=== PATIENT | female | born 1990 | race Caucasian/White ===

== ENCOUNTER 2017-11-04 02:27 | Emergency (ER) | payer SELFPAY ==
[~2017-11-04] VITALS: Ht 170.2 cm; Wt 79.4 kg
[2017-11-04 05:07] VITALS: BP 111/87
== END 2017-11-04 05:07 | disposition home or self-care (01) ==
LOC: ED 02:27
DX: O26.891 Other specified pregnancy related conditions, first trimester (principal); F45.8 Other somatoform disorders; Z3A.08 8 weeks gestation of pregnancy
CPT/HCPCS: J1200; Q0162